=== PATIENT | male | born 1980 | race Caucasian/White ===

== ENCOUNTER 2025-02-23 09:18 | Emergency (ER) | payer SELFPAY ==
[~2025-02-23] VITALS: Ht 165.1 cm; Wt 69.0 kg
[2025-02-23 09:19] VITALS: O2SAT 100
[2025-02-23] MEDS: IBUPROFEN 600MG TABLET PO ONE (10:27)
[2025-02-23 12:03] VITALS: BP 133/71; PULSE 81; RESP 18; TEMP 36.9; O2SAT 100
== END 2025-02-23 12:04 | disposition home or self-care (01) ==
LOC: ER 09:18
DX: S70.02XA Contusion of left hip, initial encounter (principal); W18.39XA Other fall on same level, initial encounter; Y93.89 Activity, other specified; Y92.89 Other specified places as the place of occurrence of the external cause; Y99.8 Other external cause status
CPT/HCPCS: 73502; 99283